=== PATIENT | male | born 1950 | race Caucasian/White ===

== ENCOUNTER 2016-07-30 10:00 | Day surgery (SDC) | payer BC ==
[~2016-07-30 10:00] MED LIST: RINGERS SOLUTION,LACTATED 1,000 ML IV PRN
[2016-07-30] MEDS ORDERED: RINGERS SOLUTION,LACTATED 1,000 ML IV ONE (11:37)
[2016-07-30 13:36] VITALS: BP 148/77
--- NOTE | 2016-07-30 19:16 | OR ---
Operative Report - Dictated Report Narrative: OPERATIVE REPORT DATE OF OPERATION: 07/30/2016 PREOPERATIVE DIAGNOSIS: No prior dedicated colon studies POSTOPERATIVE DIAGNOSIS: Rectal cancer (pathology pending). 4 mm polyp at 65 cm. And 3 mm polyp at 115 cm (pathology pending) OPERATION: Colonoscopy with hot biopsy forceps polypectomies at 65 cm and 115 cm. Biopsy of rectal cancer SURGEON: Olaf Bui MD ANESTHESIA: GERARDO Anderson CRNA INDICATIONS FOR PROCEDURE: The patient is a 66-year-old male patient of Dr. Mayo. He has had no previous dedicated colon studies. There is no family history of colon cancer. The patient apparently saw Dr. Montero about having a colonoscopy in 2013 however ultimately did not have it done. He reports some rectal discomfort and occasional bleeding. FINDINGS: Obvious rectal cancer about 3 cm above the dentate line (see photos) . Small inflammatory appearing polyp at 65 cm. 3 mm area of polypoid change at 115 cm. NARRATIVE OF PROCEDURE: The patient was identified in the holding area, and prior to the administration of anesthetic, a multidisciplinary timeout was observed. With the patient in the left lateral position and after the administration of intravenous sedation, the perineum was inspected. There was no evidence of pilonidal disease or skin breakdown. The external appearance of the anus was normal. Sphincter tone was good. The flexible fiberoptic colonoscope was inserted into the rectum which was insufflated with air. Immediately apparent was a rectal cancer beginning about 3 cm above the dentate line and extending proximally along lateral wall the rectum. The rectal mucosa and submucosal vascular pattern otherwise appeared normal, and the prep was seen to be complete. The tumor was bypassed and the scope was advanced through the sigmoid colon, and up the descending colon where at 65 cm an inflamed area of polypoid change was encountered. This was biopsied and and thoroughly destroyed with electrocautery. The site was seen to be complete and hemostatic. The scope was advanced around the splenic flexure where the triangular haustral architecture of the transverse colon was seen. The scope was advanced across the transverse colon where at approximately 115 cm a very small area of possible polypoid change was encountered. This was biopsied and thoroughly destroyed with electrocautery. The site was seen to be complete and hemostatic. The scope was advanced around the hepatic flexure to the cecum, where the confluence of tenia and the ileocecal valve were identified. The mucosa at this level appeared normal. The scope was then slowly withdrawn in a circular fashion so that all aspects of colonic mucosa were inspected. The colon was normal in course and caliber. The haustral architecture appeared well preserved throughout with no evidence of external compression. The mucosa and submucosal vascular pattern appeared normal, specifically there was no gross evidence to suggest colitis or inflammatory bowel disease and no AV malformations were seen. No bolivar diverticulosis was demonstrated. The scope was gradually withdrawn to the level of the rectum and retroflexed to obtain a view of the rectum distal to the tumor. The scope was then redirected proximally and biopsies of the tumor were obtained. There was some bleeding from the biopsy sites but this had stopped prior to the conclusion of the procedure. As much insufflated air as possible was removed. The scope was withdrawn from the patient and the procedure terminated. The patient tolerated the anesthetic and procedure well without complication and was transferred back to the ambulatory surgery area awake and in stable condition. The patient remained stable throughout a period of postoperative observation. He denied abdominal discomfort, was able to tolerate by mouth intake, and was up without assistance. I shared the operative findings with the patient and his and he was given copies of the photographs which appear in the medical record. I explained that the lesion in the rectum was most likely a cancer however this would ultimately depend upon the biopsy report which should be available by 08/01/2016. He was discharged home with instructions not to engage in hazardous activity today, but may resume normal activity tomorrow, and advance diet as tolerated. He is to continue those medications as listed in the history and physical exam. I made arrangements for him to return to the office on 08/01/2016 to discuss the biopsy report and plan further workup and therapy as indicated. Reviewed and electronically signed
== END 2016-07-30 10:01 | disposition home or self-care (01) ==
LOC: AMB 10:00
PROVIDERS: ATTEND Surgery
PROC: 0DBP8ZX Excision of Rectum, Via Natural or Artificial Opening Endoscopic, Diagnostic (ICD-10-PCS; 2016-07-30)
PROC: 0DBE8ZX Excision of Large Intestine, Via Natural or Artificial Opening Endoscopic, Diagnostic (ICD-10-PCS; principal; 2016-07-30 11:15)
DX: Z12.11 Encounter for screening for malignant neoplasm of colon (principal); D49.0 Neoplasm of unspecified behavior of digestive system; K63.5 Polyp of colon; I10 Essential (primary) hypertension; E11.9 Type 2 diabetes mellitus without complications; E78.5 Hyperlipidemia, unspecified; Z87.891 Personal history of nicotine dependence; Z68.27 Body mass index [BMI] 27.0-27.9, adult